=== PATIENT | male | born 1995 | race Caucasian/White ===

== ENCOUNTER 2017-10-02 20:31 | Emergency (ER) | payer OTHER ==
[2017-10-02] MEDS ORDERED: NS 0.9% 1000 ML* 1,000 ML IV ONE (21:43)
[2017-10-02] MEDS ORDERED: Ketorolac INJ* 30 MG/ML 1 ML VIAL IV PUSH ONE (21:43)
[2017-10-02 22:50] LABS: Hematocrit 45 % (42-52); Hemoglobin 15.2 g/dl (14.0-18.0); Mean Corpuscular HGB Conc 34 g/dl (31-36); Mean Corpuscular Hemoglobin 30 pg (27-31); Mean Corpuscular Volume 88 fL (80-94); Mean Platelet Volume 8 um3 (7.4-10.4); Red Blood Count 5.14 10^6/ul (4.0-5.4); Red Cell Distribution Width 13 % (10.5-15); White Blood Count 13.1 10^3/ul (3.5-10.8)
[2017-10-02 23:01] LABS: Albumin 4.3 g/dL (3.2-5.2); BUN/Creatinine Ratio 16.8 (8-20); Calcium 9.7 mg/dL (8.6-10.3); EGFR African American 128.7 (>60); EGFR Non-African American 100.1 (>60); Globulin 2.6 g/dL (2-4); Potassium 3.8 mmol/L (3.5-5.0); Total Bilirubin 0.5 mg/dL (0.2-1.0); Total Protein 6.9 g/dL (6.4-8.9)
[2017-10-02 23:32] LABS: Urine Bacteria Absent (Absent); Urine Bilirubin Negative (Negative); Urine Glucose Negative (Negative); Urine Nitrite Negative (Negative)
[2017-10-03 01:25] VITALS: BP 139/88
--- NOTE | 2017-10-03 03:46 | ED ---
Robert Mccauley Nikita, scribed for Red Montesinos on 10/03/17 at 0029 . Progress - Progress Note Progress Note: Pt was signed out from Dr. Lyn, pending disposition, awaiting CT abd/pel. CT abd/pel reveals: Abdominal and pelvic CT performed without oral or IV contrast administration. The CT evaluation is limited by the lack of oral and IV contrast. No urinary stone or obstruction noted. No perinephric stranding is seen. Urinary blader is decompressed. No bowel obstruction, perforation, free air or free fluid is demonstrated. Liver, pancreas, adrenal glands and spleen unremarkable for noncontrast CT. No gallstones or bile duct dilatation demonstrated. No abnormal bowel wall thickening is noted to suggest colitis, diverticulitis or inflammatory bowel disease. Normal size appendix is visualized without evidence of acute inflammation. Pt will be discharged. Pt is agreeable with this plan. Course/Dx - Diagnoses Provider Diagnoses: Right flank pain The documentation as recorded by the Robert wooten Nikita accurately reflects the service I personally performed and the decisions made by Jaguar poon Emmanuel.
--- NOTE | 2017-10-03 07:47 | RAD ---
CLINICAL HISTORY: Right flank and groin pain COMPARISON: None TECHNIQUE: Noncontrast CT examination of the abdomen and pelvis from the lung bases through the initial tuberosities. FINDINGS: VISUALIZED LUNG BASES: The visualized lung bases are grossly clear. There is no pleural effusion. ABDOMEN AND PELVIS: Evaluation of the solid organs and vasculature is limited without intravenous contrast. The liver, spleen, pancreas and adrenal glands are grossly normal in appearance. The gallbladder is normal. The kidneys are normal in appearance without focal mass, calcification or signs of hydronephrosis. The small and large bowel are not distended.The patient's normal appendix is identified in the right lower quadrant. There is no gross retroperitoneal or mesenteric lymphadenopathy. The pelvic viscera is normal in appearance. The abdominal aorta and iliac arteries are normal in course and diameter. There are no sinister bone lesions. IMPRESSION: Normal CT examination.
== END 2017-10-03 01:23 | disposition home or self-care (01) ==
LOC: ED 20:31
DX: R10.84 Generalized abdominal pain (principal)
CPT/HCPCS: 36415; 74176; 80053; 81003; 81015; 85027; 87491; 87591; 99284; J1885